=== PATIENT | female | born 1980 | race Asian ===

== ENCOUNTER 2019-06-05 08:02 | Outpatient (CLI) | payer BC ==
--- NOTE | 2019-06-05 08:26 | ULT ---
Right upper quadrant ultrasound: 06/05/2019 COMPARISON: None HISTORY: Elevated liver function tests TECHNIQUE: Multiplanar grayscale sonographic imaging of the right upper quadrant obtained. FINDINGS: Imaged pancreas grossly unremarkable. No focal liver lesion or intrahepatic biliary dilatat ion. Common bile duct measures 2 mm, within normal limits. No gallbladder wall thickening or pericholecystic fluid. Gallbladder sludge noted. Nonshadowing foci of increased echogenicity noted within the gallbladder suggesting small sludge balls or nonshadowing stones. Right kidney measures 10.7 cm in craniocaudal dimension and demonstrates no evidence for stone, hydro nephrosis, or mass lesion. IMPRESSION: Sludge and nonshadowing foci of increased echogenicity within the gallbladder lumen as de tailed above. No evidence for acute cholecystitis or biliary dilatation.
== END 2019-06-05 08:03 | disposition home or self-care (01) ==
LOC: SCSULT 08:02
PROVIDERS: ATTEND Physician Assistant Medical
DX: R94.5 Abnormal results of liver function studies (principal); K82.8 Other specified diseases of gallbladder
CPT/HCPCS: 76705

== ENCOUNTER 2019-08-01 08:26 | Day surgery (SDC) | payer BC ==
[2019-07-31 10:49] VITALS: BMI 20.2
[2019-08-01 08:48] LABS: #Eosinphils 0.1 thou/uL (0.0-0.7); #Lymphocytes 1.7 thou/uL (1.20-3.40); #Monocytes 0.3 thou/uL (0.11-0.59); #Neutrophils 2.1 thou/uL (1.40-6.50); %Basophils 1.1 % (0.0-1.0); %Eosinophils 3.3 % (0.0-10.0); %Lymphocytes 39.8 % (21.0-51.0); %Monocytes 6.6 % (0.0-10.0); %Neutrophils 49.1 % (42.0-75.0); Mean Corpuscular HGB CONC 32.8 g/dL (32.0-36.0); Mean Corpuscular Volume 91.4 fL (78.0-98.0); Platelet Count 203 thou/uL (130-400); RBC Distribution Width 10.9 % (11.5-14.5); Red Blood Cell (RBC) Count 4.33 mill/uL (4.20-5.40); White Blood Cell (WBC) Count 4.3 thou/uL (4.8-10.8)
[2019-08-01 08:52] LABS: PTT 31.8 SEC (22.9-36.1); Prothrombin Time 12.8 SEC (12.0-14.7)
[2019-08-01 08:59] LABS: BHCG - Serum Negative (NEGATIVE); Pregs Control Background? CLEAR/WHITE (CLR/WHITE); Pregs Control Bar Appear? YES (CONTROL BAR)
[2019-08-01] MEDS ORDERED: Fentanyl 100 MCG/2 ML VIAL ONE (09:01)
[2019-08-01] MEDS ORDERED: Midazolam HCl 2 mg/2 ml Vial ONE (09:01)
[2019-08-01] MEDS ORDERED: Lidocaine 1% PF 5 ML VIAL ONE (09:02)
[2019-08-01] MEDS ORDERED: Sodium Bicarbonate 2.5 MEQ/5 ML VIAL ONE (09:02)
[2019-08-01 11:00] VITALS: BP 104/73; TEMP 97.8
--- NOTE | 2019-08-01 11:22 | ULT ---
Random hepatic core biopsy: 08/01/2019 HISTORY: Abnormal liver function tests Technique/findings: Informed consent obtained prior to the procedure. Skin in the midline epigastric region overlying the left lobe of the liver was prepped and draped in normal sterile fashion. Skin was anesthetized with 1% buffered lidocaine as well as the subcutaneous soft tissues extending to the level of the liver capsule. With direct sonographic guidance, an 18-gauge core biopsy was advanced into the liver and a core biop sy was obtained. The specimen was visually inspected and appears to be composed completely of hepatic parenchyma. The patient tolerated the procedure well. Postprocedural imaging demonstrates no evidence for hemorrhage/hematoma. IMPRESSION: Successful random ultrasound-guided core biopsy of left hepatic lobe.
== END 2019-08-01 12:08 | disposition home or self-care (01) ==
LOC: ULT 08:26
PROVIDERS: ATTEND Internal Medicine Gastroenterology
PROC: 0FB23ZX Excision of Left Lobe Liver, Percutaneous Approach, Diagnostic (ICD-10-PCS; principal; 2019-08-01)
DX: R94.5 Abnormal results of liver function studies (principal); K82.8 Other specified diseases of gallbladder; Z79.899 Other long term (current) drug therapy
CPT/HCPCS: 36415; 47000; 76942; 84703; 85025; 85610; 85730; 88307; 88313; J2001; J2250; J3010